=== PATIENT | male | born 1980 | race Caucasian/White ===

== ENCOUNTER 2016-10-14 10:19 | Emergency (ER) | payer MEDICAID, OTHER ==
[~2016-10-14] VITALS: Wt 77.2 kg
[2016-10-14] MEDS ORDERED: LEVETIRACETAM 1000 MG (PMX) 100 ML IVPB STA (10:29)
--- NOTE | 2016-10-14 11:06 | RADRPT ---
PROCEDURE: CT Brain without. CLINICAL INDICATION: Seizure TECHNIQUE: A CT of the brain was performed on a multi-slice CT scanner utilizing axial sections fr om the skull base through the vertex without contrast. Coronal and sagittal reconstructed images w ere provided. One or more of the following does reduction techniques were used: Automated exposure control; adjustment of the mA and/or kV according to patient size; use of the aorta of reconstructi on technique. Images were reviewed on a high-resolution PACS workstation. The exam CTDI = 40.21 mGy . The exam DLP = 768.34 mGy-cm. COMPARISON: None available FINDINGS: The ventricles and sulci are symmetric and normal in size and morphology. There is no evidence of i ntracranial hemorrhage, mass effect, edema or midline shift. No abnormal intra-axial or extra-axial fluid collections are seen. The finnegan/white matter differentiation is well preserved. The osseous structures and visualized sinuses are unremarkable. The mastoid air cells are clear. Th e surrounding soft tissue scalp and bony calvarium are intact and normal. IMPRESSION: 1. Unremarkable CT brain. RPTAT: KK .Leroy Sy MD, MD Date Time Electronically viewed and signed by .Leroy Sy MD, MD on 10/14/2016 11:06 .B/
[2016-10-14 11:12] LABS: ADD SCAN DIFF NO
[2016-10-14 11:16] LABS: BASOPHILS % 0.4 % (0.0-2.0); EOSINOPHILS # 0.1 10^3/ul (0.0-0.5); EOSINOPHILS % 1.7 % (0.0-7.0); HEMATOCRIT 41.9 % (42.0-52.0); LYMPHOCYTES # 1.2 10^3/ul (0.8-2.9); LYMPHOCYTES % 25.7 % (15.0-51.0); MEAN CORPUSCULAR HEMOGLOBIN 30.6 pg (29.0-33.0); MEAN CORPUSCULAR HGB CONC 33.4 g/dl (32.0-37.0); MEAN CORPUSCULAR VOLUME 91.5 fl (82.0-101.0); MEAN PLATELET VOLUME 9.5 fl (7.4-10.4); MONOCYTE # 0.4 10^3/ul (0.3-0.9); MONOCYTES % 8.5 % (0.0-11.0); NEUTROPHIL # 2.9 10^3/ul (1.6-7.5); NEUTROPHILS % 63.5 % (39.0-77.0); PLATELET COUNT 275 10^3/UL (140-415); RED BLOOD COUNT 4.58 10^6/ul (4.70-6.10); RED CELL DISTRIBUTION WIDTH 12.8 % (11.5-14.5); WHITE BLOOD COUNT 4.6 10^3/ul (4.8-10.8)
[2016-10-14] MEDS ORDERED: ARIP10TA13 PO (11:34)
[2016-10-14 11:37] LABS: ANION GAP 15 (8-16); BLOOD UREA NITROGEN 15 mg/dl (7-20); CALCIUM 9.1 mg/dl (8.4-10.2); CARBON DIOXIDE 25 mmol/L (21-31); CHLORIDE 104 mmol/L (97-110); CREATININE 0.79 mg/dl (0.61-1.24); GLUCOSE 84 mg/dl (70-220); POTASSIUM 4.5 mmol/L (3.5-5.1); SODIUM 139 mmol/L (135-144)
[2016-10-14 11:38] LABS: ETHANOL < 10.0 mg/dl
[2016-10-14 12:40] LABS: BARBITURATES Negative (NEGATIVE); BENZODIAZEPINES Negative (NEGATIVE); CANNABINOIDS Positive (NEGATIVE); COCAINE Negative (NEGATIVE); OPIATES Negative (NEGATIVE)
[2016-10-14] MEDS ORDERED: TYL500 PO (14:46)
--- NOTE | 2016-10-14 14:51 | ERD ---
ER Documentation Chief Complaint Date/Time DATE: 10/14/16 TIME: 14:47 Chief Complaint FOUND PUNCHING VARGAS AND SELF INFLICTING WOUNDS AND POSSIBLE SEIZURE. HPI This 35-year-old male was brought in by paramedics because he was acting destructive and punched a wall with his right hand while he was laying down. Admits to methamphetamine use. Denies any thoughts of wanting to harm himself or others. States that he is calm down now. ROS All systems reviewed and are negative except as per history of present illness. Medications Home Meds Active Scripts Acetaminophen* (Tylenol*) 500 Mg Tab, 500 MG PO Q4H Y for MILD PAIN LEVEL 1-3, # 20 TAB Prov:GEOVANNA HOUSE DO 10/14/16 Reported Medications Aripiprazole* (Abilify*) 10 Mg Tablet, 10 MG PO DAILY, #30 TAB 10/14/16 Allergies Allergies: Coded Allergies: No Known Allergy (Unverified , 10/14/16) PMhx/Soc Medical and Surgical Hx: pt denies Medical Hx, pt denies Surgical Hx Smoking Status: Unknown if ever smoked Physical Exam Vitals Vital Signs Date Time Temp Pulse Resp B/P Pulse Ox O2 Delivery O2 Flow Rate FiO2 10/14/16 13:00 98.5 63 18 117/81 96 Room Air 10/14/16 12:00 98.5 87 18 123/76 99 Room Air 10/14/16 11:10 98.5 90 18 116/76 98 Room Air 10/14/16 10:24 98.5 91 21 116/87 98 Physical Exam Const: [] No distress. Head: Atraumatic Eyes: Normal Conjunctiva, EOMI, PRL ENT: Normal External Ears, Nose and Mouth. Neck: Full range of motion..~ No meningismus. Resp: Clear to auscultation bilaterally Cardio: Regular rate and rhythm, no murmurs Abd: Soft, non tender, non distended. Normal bowel sounds Skin: No petechiae or rashes Back: No midline or flank tenderness Ext: Abrasions to knuckles of right hand with scant dried blood. No active bleeding Neur: Awake and alert and oriented 3, no focal deficits, cranial nerves II through XII intact, no cerebellar deficits. Psych: Normal Mood and Affect Result Diagram: 10/14/16 1045 10/14/16 1045 Results 24 hrs Laboratory Tests Test 10/14/16 10:45 10/14/16 12:00 White Blood Count 4.610^3/ul Red Blood Count 4.5810^6/ul Hemoglobin 14.0g/dl Hematocrit 41.9% Mean Corpuscular Volume 91.5fl Mean Corpuscular Hemoglobin 30.6pg Mean Corpuscular Hemoglobin Concent 33.4g/dl Red Cell Distribution Width 12.8% Platelet Count 56753^3/UL Mean Platelet Volume 9.5fl Neutrophils % 63.5% Lymphocytes % 25.7% Monocytes % 8.5% Eosinophils % 1.7% Basophils % 0.4% Nucleated Red Blood Cells % 0.0/100WBC Neutrophils # 2.910^3/ul Lymphocytes # 1.210^3/ul Monocytes # 0.410^3/ul Eosinophils # 0.110^3/ul Basophils # 0.010^3/ul Nucleated Red Blood Cells # 0.010^3/ul Sodium Level 139mmol/L Potassium Level 4.5mmol/L Chloride Level 104mmol/L Carbon Dioxide Level 25mmol/L Anion Gap 15 Blood Urea Nitrogen 15mg/dl Creatinine 0.79mg/dl Glucose Level 84mg/dl Calcium Level 9.1mg/dl Ethyl Alcohol Level < 10.0mg/dl Urine Opiates Screen Negative Urine Barbiturates Negative Urine Amphetamines Screen Positive Urine Benzodiazepines Screen Negative Urine Cocaine Screen Negative Urine Cannabinoids Positive Current Medications Medications (Trade) Dose Ordered Sig/[place] Route PRN Reason Start Time Stop Time Status Last Admin Dose Admin Levetiracetam (Keppra 1,000mg/ 100ml (Pmx)) 100 ml @ 400 mls/hr ONCE STAT IVPB 10/14/16 10:29 10/14/16 10:43 DC 10/14/16 11:43 Procedures/MDM 35-year-old male admits to meth use and believes that his erratic behavior was from that. He states he is regretful for his actions. Has right hand contusions. X-rays currently pending will be followed by oncoming physician. CT brain is negative. Very unlikely that the patient actually had a seizure now he admits that he used meth and does remember the whole episode. He was initially loaded with 1 g of Keppra and given IV fluid. States that he is feeling much better. Likely had a seizure. We will discharge him with Tylenol for pain and primary care follow-up in 2-3 days also counseled on methamphetamine use and the dangers thereof. CT brain interpretation: No acute process. I see no hemorrhage, no mass-effect or midline shift no skull fracture Right hand x-ray interpretation current x-ray is currently pending and oncoming ER doctor will assess for any fractures. Departure Diagnosis: Primary Impression: Contusion of hand, right Additional Impression: Methamphetamine abuse Condition: Stable Patient Instructions: Understanding Methamphetamine Abuse and Addiction Referrals: [facility] YOU HAVE RECEIVED A MEDICAL SCREENING EXAM AND THE RESULTS INDICATE THAT YOU DO NOT HAVE A CONDITION THAT REQUIRES URGENT TREATMENT IN THE EMERGENCY DEPARTMENT. FURTHER EVALUATION AND TREATMENT OF YOUR CONDITION CAN WAIT UNTIL YOU ARE SEEN IN YOUR DOCTORS OFFICE WITHIN THE NEXT 1-2 DAYS. IT IS YOUR RESPONSIBILITY TO MAKE AN APPOINTMENT FOR FOLOW-UP CARE. IF YOU HAVE A PRIMARY DOCTOR --you should call your primary doctor and schedule an appointment IF YOU DO NOT HAVE A PRIMARY DOCTOR YOU CAN CALL OUR PHYSICIAN REFERRAL HOTLINE AT IF YOU CAN NOT AFFORD TO SEE A PHYSICIAN YOU CAN CHOSE FROM THE FOLLOWING [facility] [address] [facility] [facility] [address] [facility] [facility] [address] [facility] [facility] [address] [facility] [facility] [address] [facility] [facility]. [address] Additional Instructions: Call your primary care doctor TOMORROW for an appointment during the next 2-3 days.See the doctor sooner or return here if your condition worsens before your appointment time. GEOVNANA HOUSE DO Oct 14, 2016 14:51
[2016-10-14] MEDS ORDERED: DIPHTH/TET/ACEL PERTUSS (ADULT) 0.5 ML VIAL IM* ONE (15:00)
--- NOTE | 2016-10-14 15:04 | RADRPT ---
PROCEDURE: Right hand series CLINICAL INDICATION: Right hand pain. Trauma TECHNIQUE: AP, lateral, and oblique views of the right hand were obtained COMPARISON: None FINDINGS: No acute fracture, dislocation, or articular abnormalities are seen. The soft tissue structures are intact. IMPRESSION: Unremarkable right hand series. RPTAT: HPNM Physician Tara Date Time Electronically viewed and signed by Bobby Muñoz Physician on 10/14/2016 15:04 /
[2016-10-14 15:39] VITALS: BP 129/73; PULSE 73; RESP 18; TEMP 98.3
== END 2016-10-14 15:55 | disposition home or self-care (01) ==
LOC: E/R 10:19
DX: S60.221A Contusion of right hand, initial encounter (principal); R40.2252 Coma scale, best verbal response, oriented, at arrival to emergency department; F15.10 Other stimulant abuse, uncomplicated; R40.2142 Coma scale, eyes open, spontaneous, at arrival to emergency department; R40.2362 Coma scale, best motor response, obeys commands, at arrival to emergency department; W22.8XXA Striking against or struck by other objects, initial encounter; Y92.9 Unspecified place or not applicable
CPT/HCPCS: 36415; 70450; 73130; 80048; 80306; 80307; 85025; 90471; 90715; 96374; J1953; Z7502